=== PATIENT | female | born 1970 | race Caucasian/White ===

== ENCOUNTER 2020-02-04 05:09 | Day surgery (SDC) | payer OTHER ==
[2020-01-31 16:03] LABS: BASOPHILS 0.8 % (0-2); EOSINOPHILS 3.3 % (0-7); HEMATOCRIT 42.2 % (36.0-48.0); HEMOGLOBIN 14.2 g/dL (12-16); IMMATURE GRANULOCYTES 0.2 % (0-5); LYMPHOCYTES 38.1 % (15-50); MCH 30.1 pg (26.0-34.0); MCHC 33.6 g/dL (31.0-37.0); MCV 89.6 fL (80.0-100.0); MEAN PLATELET VOLUME 9.9 fL (7.4-10.4); MONOCYTES 6.7 % (2-11); NEUTROPHILS 50.9 % (40-80); PLATELET COUNT 295 10x3/uL (130-400); RBC 4.71 10x6/uL (4.00-5.40); RDW 12.2 % (11.5-14.5); WBC 6.4 10x3/uL (4.8-10.8)
[2020-01-31 16:25] LABS: CALC OSMOLALITY 279 mosm/kg (275-300); CALCIUM 8.9 mg/dL (8.5-10.1); CARBON DIOXIDE 29.3 mmol/L (21.0-32.0); CHLORIDE - SERUM 101 mmol/L (98-107); CREATININE - SERUM 0.7 mg/dL (0.6-1.3); GLUCOSE 94 mg/dL (74-106); POTASSIUM - SERUM 3.8 mmol/L (3.5-5.1); SODIUM 140 mmol/L (136-145); UREA NITROGEN 14 mg/dL (7-18); eGFR NON AFRICAN AMERICAN > 90 mL/min (90-120)
[2020-01-31 16:27] LABS: UDS - AMPHET NEGATIVE QUAL (NEGATIVE); UDS - BARB NEGATIVE QUAL (NEGATIVE); UDS - BENZO NEGATIVE QUAL (NEGATIVE); UDS - COCAINE NEGATIVE QUAL (NEGATIVE); UDS - OPIATE NEGATIVE QUAL (NEGATIVE); UDS - PCP NEGATIVE QUAL (NEGATIVE); UDS - THC NEGATIVE QUAL (NEGATIVE)
[2020-02-04] VITALS (11 sets, daily range): BP systolic 114–159; BP diastolic 55–112; Ht 157.5 cm; Wt 78.0 kg
[~2020-02-04] VITALS: Ht 157.5 cm; Wt 78.0 kg
[~2020-02-04 05:09] MED LIST: CENTRUM SILVER1 EAC3 PO; FISH OIL 1,0001 CA1 PO; HYDROCHLOROTHIA25 MG PO
[2020-02-04] MEDS ORDERED: BENADRYL25 MG PO (06:06)
[2020-02-04 06:14] LABS: HCG URINE NEGATIVE (NEGATIVE)
--- NOTE | 2020-02-04 10:41 | NUR ---
REC'D PT BACK TO ROOM 1278 FROM RECOVERY. AA&O X3, DOOZING PERIODICALLY. C/O ABD CRAMPING 7-8/10. ALSO C/O NAUSEA AND REQUEST INTERVENTION. VSS. RESP REGULAR AND UNLABORED, NO S/S OF DISTRESS NOTED. BREATH SOUNDS CLEAR AND EQUAL BILATERALLY. BOWEL SOUNDS PRESENT AND HYPOACTIVE X4 QUADRANTS. SANDOVAL PRESENT AND DRAINING TO BEDSIDE DRAINAGE, 800 MLS CLEAR LIGHT YELLOW URINE PRESENT. INCISIONS NOTED TO RLL, LLQ, AND UMIBILICUS, ALL WELL APPROXIMATED WITH GLUE INTACT, NO DRAINAGE NOTED. SCD'S ON BLE. NO EDEMA NOTED. POC DISCUSSED WITH PT BUT WILL NEED REINFORCEMENT. BED IN LOW POSITION WITH SRUP X2. CALL LIGHT AND PHONE WITHIN REACH. WILL CONTINUE TO MONITOR.
--- NOTE | 2020-02-04 10:53 | NUR ---
C/O ABD AND INCISIONAL DISCOMFORT 05/19, REQUESTING INTERVENTION. DILAUDAD GIVEN PER ORDER, SEE EMAR. ALSO C/O NAUSEA, ZOFRAN GIVEN AND GABAPENTIN HELD AT THIS TIME. PT STATES THAT SHE WOULD LIKE TO GO HOME THIS AFTERNOON, D/C CRITERIA DISCUSSED, HOWEVER PT OCCASIONALLY FALLING ASLEEP DURING TEACHING. BED IN LOW POSITION. ICE PACK PLACED TO ABD AND PERIPAD PLACED. BED IN LOW POSITION WITH SRUP X2. CALL LIGHT AND PHONE WITHIN REACH. WILL CONTINUE TO MONITOR.
--- NOTE | 2020-02-04 11:54 | NUR ---
RN TO BEDSIDE. SPO2 MONITOR CHANGED TO PORTABLE MONITOR D/T NOT READING ACCURATELY, PORTABLE MONITOR READING 96%-99%. O2 REMAINS IN PLACE AT 2L/MIN, WILL BEGIN TO WEAN PT WAKES UP. PT ATTEMPTED TO CALL FAMILY BUT NO ANSWER WAS REC'D. 100 MLS CLEAR LIGHT YELLOW URINE EMPTIED FROM SANDOVAL. V/S. PT REPOSITIONED TO LEFT SIDE, PILLOW PLACED BEHIND BACK. SCD'S REMAIN ON BLE. ICE PACK TO ABD REMAINS IN PLACE. BED IN LOW POSITION WITH SRUP X2. CALL LIGHT AND PHONE WITHIN REACH.
--- NOTE | 2020-02-04 12:21 | NUR ---
THIS RN SPOKE TO JUDI, PT'S SISTER AND TRANSFERRED CALL TO PT ROOM PER REQUEST. RN TO BEDSIDE TO GIVE PT PHONE. PT CONVERSES WITH SISTER AND SISTER UPDATED ON PT CONDITION PER PT REQUEST WITH RN AT BEDSIDE. PT CONTINUES TO FALL ASLEEP WHILE TALKING MID SENTENCE. SWEET ICED TEA PROVIDED PER PT REQUEST. DENIES NAUSEA AT THIS TIME. BED IN LOW POSITION WITH SRUP X2. CALL LIGHT AND PHONE WITHIN REACH. WILL CONTINUE TO MONITOR.
--- NOTE | 2020-02-04 13:19 | NUR ---
RN TO BEDSIDE. SPO2 RANGING 97%-98%, O2 DECREASED TO 1 L/MIN. EASILY AROUSES TO VOICE, DENIES PAIN AND NAUSEA AT THIS TIME. 100 MLS CLEAR LIGHT YELLOW URINE EMPTIED FROM SANDOVAL. REPORTS THAT FEELS "GROGGY", CONTINUES TO FALL ASLEEP MID SENTENCE. VSS. NO VAG BLEEDING/DISCHARGE NOTED. ABD INCISIONS REMAIN WELL APPROXIMATED WITH GLUE INTACT. WILL CONTINUE TO MONITOR. BED IN LOW POSITION WITH SRUP X2. CALL LIGHT AND PHONE WITHIN REACH. PT NOTED TO BE BACK ON BACK. HOB 40 DEGREES.
--- NOTE | 2020-02-04 13:44 | NUR ---
REPORT GIVEN TO Constantino SMALLS RN
--- NOTE | 2020-02-04 13:55 | NUR ---
THIS RN TO ROOM FOR PT CHECK. PT SUPINE WITH HOB APPROX 45DEGREES. PT RESTING WITH EYES CLOSED, RESP EVEN AND UNLABORED. PT ALERTS TO VOICE. PT RATES PAIN 3/10 AT THIS TIME, DENIES NEEDS. POC DISCUSSED AND GOALS FOR D/C TO HOME. PT DROWSY AND FALLING BACK ASLEEP WHILE TALKING. 02 SAT NOTED TO DECREASE FROM APPROX 94% TO 88% WHEN PT IS SLEEPING. OXYGEN VIA NC INCREASED FROM 1L TO 2L. SRUx2, CL IN REACH. WILL CONT TO MONITOR.
--- NOTE | 2020-02-04 14:45 | NUR ---
THIS RN TO ROOM FOR PT CHECK. PT AWAKE, STATES SHE WANTS TO GET UP TO PEE. SANDOVAL CATH REMOVED, IV SALINE LOCKED, SCD'S REMOVED. OXYGEN VIA NC REMOVED FOR AMBULATION. O2 SATS MAINTAINED AT 100%. PT ASSISTED TO BR AMBULATORY, SLOW STEADY GAIT. PT TO TOILET, STATES SHE FEELS SHE NEEDS TO BURP. SMALL AMOUNT CLEAR EMESIS VOMITED WITH "BURP". PT UNABLE TO VOID. PT ENCOURAGED SENSATION TO VOID WAS LIKELY JUST FROM CATHETER AND WE WILL GIVE HER MORE TIME FOR BLADDER TO FILL NOW THAT THE CATHETER IS REMOVED. UNDERSTANDNIG VERBALIZED. PT PLACED IN CLEAN GOWN, PANTIES, AND PERIPAD. NO VAGINAL BLEEDING SEEN. BED PAD CHANGED. PT BACK TO BED AMBULATORY WITH MINIMAL ASSIST, SCD'S REPLACED. PT STATES SHE IS HUNGRY, DENIES NAUSEA. CRACKERS AND SPRITE PROVIDED ON BEDSIDE TABLE. PT FALLING ASLEEP THIS RN IS EXITING ROOM. NOTED THAT O2 SATS DROP TO 88 WHEN PT IS ASLEEP. OXYGEN VIA NC REPLACED AT 2L. SRUx2, CL IN REACH. WILL CONT TO MONITOR.
--- NOTE | 2020-02-04 17:04 | NUR ---
THIS RN TO ROOM FOR PT CHECK. PT SITTING UP IN BED, AWAKE. STATES SHE ATE SOME CRACKERS AND DRANK CUP OF TEA, DENIES NAUSEA, STATES SHE WANTS TO GET UP TO BR TO VOID. THIS RN DISCUSSING POC WITH PT, PT SITS UP IN BED AND VOMITS LARGE AMOUNT OF CLEAR LIQUID IN EMESIS BAG. PT STATES "WELL THERE WENT ALL MY TEA AND CRACKERS." PT GIVEN WET CLOTH FOR FACE AND NEW EMESIS BAG. PT ADMIN PRN ZOFRAN ORDERED FOR NAUSEA, SEE EMAR FOR DOC. PT ADVISED TO WAIT AND ALLOW NAUSEA TO CALM BEFORE ATTEMPTING TO AMBULATE TO BR. PT AGREES. CELL PHONE GIVEN FROM PT BELONGINGS PER REQUEST SO SHE CAN CALL HER SISTER. DENIES FURTHER NEEDS AT THIS TIME. SRUx2, CL IN REACH. WILL CONT TO MONITOR.
--- NOTE | 2020-02-04 17:44 | NUR ---
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 PT RATES PAIN APPROX 3/10. TORADOL ADMIN, SEE EMAR FOR DOC. PT REFUSES NEURONTIN, STATES SHE WILL JUST THROW IT UP. WILL RETURN TO REASSESS PAIN.
--- NOTE | 2020-02-04 18:25 | NUR ---
OXYGEN NOTED TO BE OFF PER PT, OXYGEN SATURATIONS MAINTAINED AT 100%. OXYGEN TURNED OFF.
--- NOTE | 2020-02-04 18:25 | NUR ---
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 PT SITTING UP IN BED, VOMITING. PT STATES "I JUST TRIED TO TAKE A FEW SIPS OF WATER, BUT IT DIDN'T STAY DOWN." PT GIVEN CLOTH AND NEW EMESIS BAG. PT DENIES URGE TO VOID, STATES SHE WANTS TO LAY BACK IN BED. PT LIES DOWN, HOB LOWERED. WILL RESUME IV FLUIDS AND NOTIFY MD OF CONTINUED NAUSEA.
--- NOTE | 2020-02-04 18:35 | NUR ---
DR MEDRANO UMBRELLA TIPPER MACHINE, PHONED AND NOTIFIED OF PT'S CONTINUED NAUSEA DESPITE ZOFRAN, UNABLE TO TOLERATE ANYTHING PO. ORDER RECEIVED FOR 25MG PHENERGAN SLOW IVP x1 NOW, ALLOW PT TO SLEEP, AND IF SHE WAKES UP AND MEETS CRITERIA, VOIDS, AND IS ABLE TO TOLERATE PO AND STILL DESIRES TO D/C HOME, SHE MAY BE DISCHARGED HOME, EVEN IF IT IS AFTER 1999. WILL UPDATE PT ON POC.
--- NOTE | 2020-02-04 19:07 | NUR ---
PHENERGAN ADMIN ORDERED WELL IV FLUIDS RESTARTED. PT UPDATED ON POC. PULSE OX REMAINS AT 99% ON RA, OXYGEN REMAINS OFF. WILL CONT TO MONITOR OXYGEN SATURATIONS. SRUx2, CL IN REACH.
--- NOTE | 2020-02-04 19:08 | NUR ---
REPORT TO PM SHIFT.
--- NOTE | 2020-02-04 19:18 | NUR ---
PT REC'D IN BED AT THIS TIME. STATES "NAUSEA IS NOT BAD RIGHT NOW." IV OF LR INFUSING TO THE ;EFT FOREARM AT 150 ML/HR. SITE CLEAR AND PATENT. INCISIONS X3 NOTED TO ABDOMEN. SITES INTACT WITHOUT S/S OF INFECTION NOTED. NO ACUTE DISTRESS NOTED AT THIS TIME. CALL LIGHT IN PT REACH. Millie TALAVERA RN
--- NOTE | 2020-02-04 19:38 | NUR ---
PRESCRIPTIONS X3 GIVEN TO SISTER TO TAKE TO PHARMACY TO FILL. Millie TALAVERA RN
--- NOTE | 2020-02-04 20:37 | NUR ---
PT DENIES NAUSEA AT THIS TIME. PT UP TO VOID. PT VOIDED 350 ML AT THIS TIME. NO DIFFICULTY NOTED. PT ASSISTED BACK TO BED WITH MINIMAL ASSISTANCE AND GIVEN CRACKERS AND SPRITE. WILL CONTINUE TO MONITOR NAUSEA. Millie TALAVERA RN
--- NOTE | 2020-02-04 21:10 | NUR ---
PT HAS EATEN CRACKERS AND SPRIE WITHOUT NAUSEA. PT REQUESTING A SANDWICH TRAY. PT GIVEN SANDSIWCH TRAY AT THIS TIME. WILL CONTINUE TO MONITOR. Millie TALAVERA RN
--- NOTE | 2020-02-04 21:18 | NUR ---
PT GIVEN NEURONTIN AT THIS TIME. PT UP TO BATHROOM WITH MINIMAL ASSISTANCE TO VOID. PT VOIDED 550 ML AT THIS TIME. Millie TALAVERA RN
--- NOTE | 2020-02-04 21:31 | NUR ---
PT MEDICATED WITH PERCOCET ONE TAB FOR PAIN LEVEL OF 2-3/10 PRIOR TO DISCHARGE. Millie TALAVERA RN
--- NOTE | 2020-02-04 21:45 | NUR ---
PT DISCHARGE INSTRUCTIONS REVIEWED AT THIS TIME. QUESTIONS ASKED AND ANSWERED. Millie TALAVERA RN
--- NOTE | 2020-02-04 23:26 | NUR ---
2152 PT DISCHARGED VIA WHEELCHAIR IN STABLE CONDITION. CONDITIONS FOR DISCHARGE MET. Millie TALAVERA RN
--- NOTE | 2020-02-05 13:34 | OP ---
PATIENT NAME: Cleopatra HERNADEZ MEDICAL RECORD: [id number] :68 LOCATION:D.OPS ADMISSION DATE: SURGEON: SHAHEED MENESES MD DATE OF OPERATION: 02/04/2020 PREOPERATIVE DIAGNOSES: 1. History of abnormal Pap smear. 2. Uterine prolapse. POSTOPERATIVE DIAGNOSES: 1. History of abnormal Pap smear. 2. Uterine prolapse. PROCEDURE: 1. Diagnostic laparoscopy. 2. Total laparoscopic hysterectomy. 3. Bilateral salpingo-oophorectomy. 4. Vault suspension. 5. Cystoscopy. SURGEON: Shaheed Meneses MD SENIOR STEREO COMPILER TEAM LEAD: Earl. ANESTHESIOLOGIST: Dr. Luis Victoria. ANESTHESIA: General. FINDINGS: What was visualized of the abdominal and pelvic anatomy was unremarkable. The uterus is slightly boggy with both ovaries and tubes appeared unremarkable. The bladder mucosa is unremarkable and both ureteral orifices have good efflux of urine. The uterus descends to within a centimeter of the hymenal ring. SPECIMENS REMOVED: 1. Uterus with cervix. 2. Bilateral tubes and ovaries. SPECIMEN DISPOSITION: All specimens to pathology. ESTIMATED BLOOD LOSS: Less than or equal to 75 cc. FLUIDS: 1600 cc of lactated Ringer's. URINE OUTPUT: 200 cc of clear urine. COMPLICATIONS: None. DRAINS: Aranda to gravity discontinued upon arrival to floor. 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 The patient also has pelvic organ prolapse of uterus to the hymenal ring, which is symptomatic. The patient is consented for total laparoscopic hysterectomy and bilateral salpingo-oophorectomy and any indicated procedure. OPERATIVE REPORT [id number] Cleopatra HERNADEZ DESCRIPTION OF PROCEDURE: After informed consent was assured, the patient was taken to the operating room where anesthetic was obtained and she was placed in [facility]. A uterine manipulator was now placed. Primary incision is now made at the umbilicus and a trocar inserted. Pneumoperitoneum was developed and accessory ports were placed in the right lower and left lower quadrants. Right lower quadrant port is 11-mm port and left lower quadrant port is 5-mm port. Through the left port, a grasper was introduced and the right tube and ovary was elevated. Using the Thunderbeat coagulation cutter, the tube and ovary is now removed from its attachment to the infundibulopelvic ligament by compressing, coagulating, and these tissues. The dissection was carried out underneath the right ovary and down across the round ligament. The anterior leaf of the broad ligament was opened and the bladder flap developed beyond the midline. The posterior leaf was now opened and the vessels on the right side skeletonized, compressed, coagulated, and then . Next, the attention was now directed to the left side. Some adhesions were encountered of the large bowel to the sidewall and this was taken down with the Thunderbeat. Dissection began to across the infundibulopelvic ligament and under the left ovary and tube. This dissection was carried out over the round ligament and the anterior leaf of the broad ligament was opened and the bladder flap now fully developed. The posterior tissues were dissected free of the vascular bundle, which is now compressed, coagulated, and . Using a peanut, the tissues are further bluntly dissected off the vaginal cuff. The cup was identified and entered at the 10 o'clock position. Dissection was carried out forward to the 12 o'clock and then from the 10 to the 5 o'clock positions. The remaining portion of the attachment of the cervix to the vaginal cuff is removed from the right side going from 12 to 5 o'clock position. Uterus and tubes and ovaries were now pulled into the vagina maintaining pneumoperitoneum. An 0 Stratafix stitch on a CT-2 needle was now placed into the pelvis. The stitches anchored on the right side just at the uterosacral ligament attachment at the edge of the vaginal cuff and carried across to the left side. After this has been secured, pelvis was irrigated, irrigant removed. With a history of prolapse, a cuff suspension is now performed. Using a [address]-1 needle, the right uterosacral ligament was transfixed approximately 2 cm above the cuff. This is now passed out of the peritoneum on the right side and then through the vaginal cuff tissues and back through the peritoneum on the left side coming up through the left uterosacral ligament. The stitch was pulled out of the pelvis and using extracorporeal knot tying technique secured. The cul-de-sac has been obliterated and both ligaments secured to the support of the vaginal cuff. Cystoscopy was now performed. The cystoscopy reveals an unremarkable vaginal mucosa with efflux of urine on both right and left sides. The mucosa is inspected posteriorly without evidence of suture or trauma. The Aranda catheter was restarted. Vaginal cuff was inspected with speculum revealing adequate juxtaposition of tissues and no vaginal bleeding. The pneumoperitoneum was now released and accessory ports were removed under direct visualization. The primary port is now removed. All sites were closed with a subcuticular stitch and Dermabond was applied. Sponge, lap, needle counts were correct times 2 and the patient was awakened and went to the recovery room in stable condition. TRANSINT:[id number] Voice Confirmation ID: [id number] DOCUMENT ID: [id number] OPERATIVE REPORT [id number] Cleopatra HERNADEZ JOSEPH E MD at 1334 CC: [id number] DICTATION DATE: 02/04/20939 GOLF TOURNAMENT CONSULTANT: 02/04/202043 [facility] 02/04/20 [id number] [place] [address]
== END 2020-02-04 21:52 | disposition home or self-care (01) ==
LOC: D.OPS 05:09 → D.PAN 09:15 → D.LD 10:06 → D.OPS 21:52
PROVIDERS: ATTEND Obstetrics & Gynecology
DX: Z87.42 Personal history of other diseases of the female genital tract (principal); N81.4 Uterovaginal prolapse, unspecified